=== PATIENT | female | born 1940 | race Caucasian/White ===

== ENCOUNTER 2018-12-24 05:31 | Inpatient (IN) | payer MEDICARE, OTHER | END 2018-12-27 17:09 | disposition home or self-care (01) | LOC: PAS IN 05:31 → ORTHO 4S 10:40 | PROC: 0SRD0J9 Replacement of Left Knee Joint with Synthetic Substitute, Cemented, Open Approach (ICD-10-PCS; principal; 2018-12-24 07:06) | DX: M17.12 Unilateral primary osteoarthritis, left knee (principal); D62 Acute posthemorrhagic anemia; I48.91 Unspecified atrial fibrillation; Z79.01 Long term (current) use of anticoagulants ==

== ENCOUNTER 2019-08-16 14:58 | Day surgery (SDC) | payer MEDICARE, OTHER ==
[~2019-08-16] VITALS: Ht 172.7 cm; Wt 121.3 kg
[2019-08-16] VITALS (8 sets, daily range): BP systolic 128–170; BP diastolic 57–88
[~2019-08-16 14:58] MED LIST: APIX5TAB3 PO; ATOR40TA PO; DILT180C66 PO; LOSA50TA64 PO; METF-438 PO; MULT-1180 PO; OCUVITE PO; PIOG15TA8 PO; SITA50TA PO
[2019-08-16] MEDS ORDERED: normal saline 1000ml 1,000 ML IV SCH (15:25)
[2019-08-16] MEDS ORDERED: fentaNYL/PF 50MCG/1 ML 2ML syringe IV ONE (15:25)
[2019-08-16] MEDS ORDERED: MIDAZolam 5mg/ml 2ml vial IV ONE (15:25)
[2019-08-16] MEDS ORDERED: DILT300C53 PO (15:36)
[2019-08-16] MEDS ORDERED: SITA100T15 PO (15:36)
[2019-08-16] MEDS ORDERED: APIX5TAB3 PO (15:36)
== END 2019-08-16 18:55 | disposition home or self-care (01) ==
LOC: SSTAY O 14:58
PROVIDERS: ATTEND Internal Medicine Interventional Cardiology
DX: I48.0 Paroxysmal atrial fibrillation (principal); I48.3 Typical atrial flutter; E11.9 Type 2 diabetes mellitus without complications; I10 Essential (primary) hypertension; E78.5 Hyperlipidemia, unspecified; Z79.84 Long term (current) use of oral hypoglycemic drugs; Z79.899 Other long term (current) drug therapy; Z79.01 Long term (current) use of anticoagulants
CPT/HCPCS: 82948; 92960; 93005; J2250; J3010; J7030

== ENCOUNTER 2024-10-25 13:17 | Outpatient (CLI) | payer MEDICARE, OTHER ==
[~2024-10-25 13:17] MED LIST changes: +ATOR20TA66 PO; -ATOR40TA PO; +BETA1TAB19 PO; -DILT180C66 PO; +IBAN150T21 PO; +LACT1CAP26 PO; -LOSA50TA64 PO; +METO25TA6 PO; -MULT-1180 PO; -OCUVITE PO; +OLME20TA69 PO; -PIOG15TA8 PO; +PIOG30TA71 PO; -SITA50TA PO
[2024-12-22] MEDS ORDERED: boniva PO (16:25)
== END 2024-10-25 23:59 | disposition home or self-care (01) ==
LOC: RAD 13:17
PROVIDERS: ATTEND Student in an Organized Health Care Education/Training Program
DX: J18.9 Pneumonia, unspecified organism (principal)
CPT/HCPCS: 71046

== ENCOUNTER 2025-01-06 11:11 | Outpatient (CLI) | payer MEDICARE, OTHER ==
[~2025-01-06 11:11] MED LIST changes: -BETA1TAB19 PO; +CEFD300C3 PO; +FURO20TA4 PO; -LACT1CAP26 PO; +POTA-207 PO; +SACC250C PO; +boniva PO
== END 2025-01-06 23:59 | disposition home or self-care (01) ==
LOC: RAD 11:11
PROVIDERS: ATTEND Student in an Organized Health Care Education/Training Program
DX: J18.9 Pneumonia, unspecified organism (principal); J90 Pleural effusion, not elsewhere classified
CPT/HCPCS: 71045

== ENCOUNTER 2025-03-22 10:13 | Outpatient (CLI) | payer MEDICARE, OTHER ==
[~2025-03-22 10:13] MED LIST changes: -CEFD300C3 PO; -FURO20TA4 PO; -METF-438 PO; +METO-395 PO; -METO25TA6 PO; -OLME20TA69 PO; -PIOG30TA71 PO; -POTA-207 PO; -SACC250C PO; -boniva PO
--- NOTE | 2025-03-22 11:05 | RADIOLOGY REPORT ---
DI CHEST,TWO VIEWS, HISTORY: RECURRENT RIGHT PLEURAL EFFUSION COMPARISON: DI CHEST,TWO VIEWS on DOS: 10/25/24, DI CHEST,TWO VIEWS on DOS: 10/01/24 DI CHEST,TWO VIEWS on DOS: 10/25/24, DI CHEST,TWO VIEWS on DOS: 10/01/24 TECHNICAL DATA: 2 view of the chest was obtained. FINDINGS: Lines and tubes: A right sided chest tube is seen. Cardiomediastinal silhouette: normal Pulmonary vasculature: normal Lung expansion: normal Lung airspace: Patchy right basilar airspace opacities. Lung interstitium: normal Pleura: Increase in right pleural effusion. Pneumothorax: no Bones: Unremarkable Other: no IMPRESSION: Increase in right pleural effusion. Patchy right basilar airspace opacities. No pneumothorax is seen.
== END 2025-03-22 23:59 | disposition home or self-care (01) ==
LOC: RAD 10:13
PROVIDERS: ATTEND Thoracic Surgery (Cardiothoracic Vascular Surgery)
DX: J90 Pleural effusion, not elsewhere classified (principal); J98.4 Other disorders of lung
CPT/HCPCS: 71046

== ENCOUNTER → 2025-04-01 | Outpatient (CLI) | payer MEDICARE, OTHER ==
[~2025-04-01] MED LIST changes: +EMPA10TA PO; +FURO40TA4 PO; +METO25TA6 PO; +POTA-207 PO
--- NOTE | 2025-04-01 10:50 | RADIOLOGY REPORT ---
EXAM: DI CHEST,TWO VIEWS CLINICAL HISTORY: RECURRENT RIGHT PLEURAL EFFUSION COMPARISON: DI CHEST,TWO VIEWS on DOS: 03/22/25, DI CHEST,TWO VIEWS on DOS: 10/25/24, DI CHEST,TWO VIEW S on DOS: 10/01/24 TECHNIQUE: Frontal and lateral view of the chest was obtained FINDINGS: Lines and Tubes: Right chest tube is visualized. Lungs: Small right pleural effusion. Pleura: No effusion. No pneumothorax. Cardiomediastinal contours: Unremarkable Bones: No acute osseous abnormality. IMPRESSION: Right chest tube is visualized with small right pleural effusion.
== END | disposition home or self-care (01) ==
LOC: RAD 09:50
PROVIDERS: ATTEND Thoracic Surgery (Cardiothoracic Vascular Surgery)
DX: J90 Pleural effusion, not elsewhere classified (principal)
CPT/HCPCS: 71046

== ENCOUNTER 2025-04-08 08:14 | Day surgery (SDC) | payer MEDICARE, OTHER ==
[2025-04-07 13:13] LABS: BASOPHILS # (AUTO) 0.1 X10'3 (0-0.2); EOSINOPHILS # (AUTO) 0.2 X10'3 (0-0.9); EOSINOPHILS % (AUTO) 1.8 % (0-6); LYMPHOCYTES # (AUTO) 1.7 X10'3 (1.1-4.8); LYMPHOCYTES % (AUTO) 17.5 % (21-51); MEAN CORPUSCULAR HEMOGLOBIN 30.2 PG (27.0-31.0); MEAN CORPUSCULAR HGB CONC 32.8 g/dL (33.0-36.5); MEAN CORPUSCULAR VOLUME 92.2 FL (78-98); MEAN PLATELET VOLUME 7.7 FL (7.4-10.4); MONOCYTES # (AUTO) 1.1 X10'3 (0-0.9); MONOCYTES % (AUTO) 10.8 % (2-12); NEUTROPHILS # (AUTO) 6.7 X10'3 (1.8-7.7); NEUTROPHILS % (AUTO) 68.9 % (42-75); PRE OP HEMATOCRIT 42.5 % (35.0-45.0); PRE OP HEMOGLOBIN 13.9 g/dL (12.0-16.0); PRE OP PLATELET COUNT 475 X10'3 (140-440); PRE OP WHITE BLOOD COUNT 9.8 10'3 (4.8-10.8); RED BLOOD COUNT 4.61 X10'6 (4.20-5.60); RED CELL DISTRIBUTION WIDTH 14.4 % (11.5-14.5)
[2025-04-07 13:25] LABS: ALBUMIN 2.8 G/DL (3.4-5.0); ALBUMIN/GLOBULIN RATIO 0.7 (1.1-1.5); ALKALINE PHOSPHATASE 169 IU/L (46-116); BLOOD UREA NITROGEN 12 MG/DL (7-18); BUN/CREATININE RATIO 12.8 (10.0-20.0); CALCIUM 9.2 MG/DL (8.5-10.1); CHLORIDE 102 MMOL/L (99-107); CREATININE 0.94 MG/DL (0.40-0.90); PRE OP ALT 35 U/L (30-65); PRE OP ANION GAP 7 (8-16); PRE OP AST 49 U/L (10-37); PRE OP BILIRUB, TOTAL 0.7 MG/DL (0.0-1.0); PRE OP GLUCOSE 107 MG/DL (70-104); PRE OP POTASSIUM 4.1 MMOL/L (3.4-5.1); PRE OP SODIUM 142 MMOL/L (135-145); TOTAL CARBON DIOXIDE 32.6 MMOL/L (24-32); TOTAL PROTEIN 6.8 G/DL (6.4-8.2); eGFR 57 ML/MIN
[2025-04-07] MEDS: ceFAZolin 2gm/dext,iso 50mL 50 ML IV ONE (14:36)
[2025-04-07] MEDS: DOCUMENT DATE & TIME OF BETA-BLOCKER PO ONE (15:03)
[~2025-04-08] VITALS: Ht 175.3 cm; Wt 103.6 kg
[2025-04-08] VITALS (10 sets, daily range): BP systolic 97–129; BP diastolic 60–93; PULSE 68–117; RESP 14–23; TEMP 98.2; O2SAT 96–100
[~2025-04-08 08:14] MED LIST changes: -IBAN150T21 PO; -METO25TA6 PO
[2025-04-08] MEDS: famotidine 20mg tablet PO ONE (09:19)
[2025-04-08] MEDS: ringers solution, lacted 1,000 ML IV SCH (09:20)
[2025-04-08] MEDS ORDERED: BUPIVAcaine 2.5mg/ml inj 50ml vial (contains preservative) ONE (12:13)
[2025-04-08] MEDS ORDERED: LIDOcaine 1% (10mg/ml)w/preservative inj. 20ml MDV ONE (12:13)
[2025-04-08] MEDS ORDERED: propofol 10mg/ml 20ml vial IV ONE (12:15)
--- NOTE | 2025-04-08 12:16 | RADIOLOGY REPORT ---
EXAM: DI CHEST,SINGLE VIEW HISTORY: PREOP COMPARISON: DI CHEST,SINGLE VIEW on DOS: 02/09/25, DI CHEST,SINGLE VIEW on DOS: 02/08/25, DI CHEST,SING LE VIEW on DOS: 02/07/25, DI CHEST,SINGLE VIEW on DOS: 02/06/25, DI CHEST,SINGLE VIEW on DOS: 02/05/25, chest CT dated 02/05/2025 TECHNIQUE: Portable upright AP view of the chest was performed. FINDINGS: Loculated right pleural effusion and right lung base atelectasis are re-identified. Right chest thora costomy tube is re-identified with its tip in the right upper chest apex. No pneumothorax. The left l ant is clear. The heart is borderline enlarge the aortic arch is calcific. The central pulmonary art eries are ectatic, better characterized on prior CT scan. There are postoperative changes of left pr oximal humeral fixation, not fully imaged here. IMPRESSION: 1. Stable loculated right pleural effusion and right lung base atelectasis, with right thoracostomy t ube in place. 2. The left lung is clear. 3. Atherosclerotic vascular disease and pulmonary arterial hypertension.
[2025-04-08] MEDS ORDERED: ringers solution, lacted 1,000 ML IV SCH (12:25)
[2025-04-08] MEDS ORDERED: ondansetron/PF 4mg/2ml inj IV PRN (12:25)
[2025-04-08] MEDS ORDERED: labetalol 20mg/4ml (5mg/ml) syringe IV PRN (12:25)
[2025-04-08] MEDS ORDERED: enalaprilat 1.25mg/ml 2ml vial IV PRN (12:25)
[2025-04-08] MEDS ORDERED: proCHLORperazine 10 MG/2 ml inj IV PRN (12:25)
[2025-04-08] MEDS ORDERED: morphine 4 MG/ML inj SYRINge IV PRN (12:25)
[2025-04-08] MEDS ORDERED: morphine 2 MG/ML inj. syringe IV PRN (12:25)
[2025-04-08] MEDS ORDERED: meperidine/PF 25mg/ml syringe IV PRN ×3 (12:25)
[2025-04-08] MEDS ORDERED: midazolam 1 mg/ML 2ml injection ONE (12:29)
[2025-04-08] MEDS ORDERED: mupirocin 2% ointment 22GM ONE (12:42)
--- NOTE | 2025-04-25 12:10 | OPERATIVE REPORT ---
DATE OF SURGERY: 04/08/2025 DICTATING PHYSICIAN: Mikie Robison MD PREOPERATIVE DIAGNOSIS: Nonfunctioning right PleurX catheter. POSTOPERATIVE DIAGNOSIS: Nonfunctioning right PleurX catheter. PROCEDURE: Removal of PleurX catheter. SURGEON: Mikie Robison MD ANESTHESIA: Local with 1% lidocaine, approximately 5 mL with monitored anesthesia coverage. COMPLICATIONS: None. ESTIMATED BLOOD LOSS: Less than 2 mL. DESCRIPTION OF PROCEDURE: The patient was taken to the operating room and placed in the supine position. Following the administration of intravenous sedation, the right anterior chest and upper abdomen were prepped and draped sterilely. The skin and subcutaneous tissue surrounding the insertion site of the PleurX catheter was infiltrated with 1% lidocaine. The suture securing the catheter to the skin was then divided. Using a mosquito clamp, the insertion site was dilated. Gentle downward traction to identify the location of the cuff was then accomplished. This area was then freed with blunt dissection. With gentle and firm downward traction, the catheter was easily removed from the chest. The site was then treated with Neosporin ointment and a bio-occlusive dressing placed. The patient was awakened and returned to the recovery room in stable condition, having tolerated the procedure satisfactorily. There were no complications. Sponge, needle and instrument counts were correct x 2 at the end of the case. Mikie Robison MD TID: [id number] RECEIPT: [id number] ALLEY/EDEL
== END 2025-04-08 14:28 | disposition home or self-care (01) ==
LOC: PAS 08:14
PROVIDERS: ATTEND Thoracic Surgery (Cardiothoracic Vascular Surgery)
DX: Z46.82 Encounter for fitting and adjustment of non-vascular catheter (principal); J90 Pleural effusion, not elsewhere classified; I48.91 Unspecified atrial fibrillation; I10 Essential (primary) hypertension; E78.5 Hyperlipidemia, unspecified; E11.9 Type 2 diabetes mellitus without complications; Z98.890 Other specified postprocedural states; Z79.899 Other long term (current) drug therapy; Z90.710 Acquired absence of both cervix and uterus; Z96.653 Presence of artificial knee joint, bilateral
CPT/HCPCS: 32552; 36415; 71045; 80053; 82948; 85025; A4215; A6258; J2250; J2704; J3490; J7120; Z7506; Z7512; Z7610

== ENCOUNTER 2025-04-09 10:41 | Emergency (ER) | payer MEDICARE, OTHER ==
[~2025-04-09] VITALS: Ht 175.3 cm; Wt 151.0 kg
[2025-04-09 11:02] VITALS: TEMP 98.2
--- NOTE | 2025-04-09 11:39 | Physician Documentation ---
History of Present Illness ~ Chief Complaint: Wound Re-Check Stated Complaint: LUNG BANDAGE Time Seen by MD: 11:02 Primary Medical Doctor: Linda Barrientos HPI 85-year-old female presenting for wound check. She had her PleurX catheter for recurrent pleural effusion pulled 2 days ago. The dressing was dislodged and she was told by her home health nurse to get rechecked in the emergency department. She has no fever no shortness of breath no symptoms she is feeling fine no noted drainage from the incision site Reviewed discharge summary January 2025 recurrent right pleural effusion status post tunneled PleurX catheter February 07, 2025 Medication Reconciliation Allergies: Coded Allergies: melatonin (Verified Adverse Reaction, Intermediate, confusion, 04/07/25) confusion and Hallucination Scheduled Apixaban (Eliquis), 1 TAB PO BID, (Reported) Atorvastatin Calcium (Atorvastatin Calcium), 1 TAB PO DAILY, (Reported) Empagliflozin (Jardiance), 1 TAB PO DAILY, (Reported) Furosemide (Furosemide), 1 TAB PO BID, (Reported) Metoprolol Succinate (Metoprolol Succinate), 1 TAB PO DAILY, (Reported) Potassium Chloride* (K-Dur*), 1 TAB PO DAILY, (Reported) Discontinued Medications Ibandronate Sodium (Ibandronate Sodium), 1 TAB PO Q30D, (Reported) Discontinued Reason: Pt. Refused Metoprolol Succinate (Metoprolol Succinate), 25 MG PO DAILY Discontinued Reason: Other Metoprolol Tartrate (Metoprolol Tartrate), 1 TAB PO BID, (Reported) Discontinued Reason: Prescription changed Past Medical History Past Medical History: Atrial Fibrillation, Pneumonia, *GI/HEPATOBILIARY* Past Surgical History: noncontributory Alcohol Use: None Drug Use: none Lives with: Spouse Lives In: Home Occupation: retired Review of Systems All Other Systems at this time: Reviewed and Negative Physical Exam Vital Signs: Temperature: 98.2, Source: Oral, Heart Rate: 74, Respiratory Rate: 18, BP: 150/89, Pulse Oximetry: 97, Weight: 151.000 Oxygen Flow Rate: 0 Physical Exam Well-appearing no distress Pulmonary clear to auscultation bilaterally Right posterior chest tube incision intact, appropriately healing, no drainage no purulent discharge no surrounding erythema Progress Results/Orders Results/Orders Vital Signs 04/09/25 11:02 Temp 98.2 Pulse 74 Resp 18 B/P (MAP) 150/89 Pulse Ox 97 O2 Flow Rate 0 Medical Decision Making Additional info obtained from: old records Additional Comment Abscess, cellulitis, pneumothorax Departure Disposition: 01 HOME / SELF CARE / HOMELESS Impression: Primary Impression: Healing of postoperative wound Additional Impression Text Patient presenting for dislodged wound dressing following PleurX catheter removal 2 days ago. She is asymptomatic. Wound is healing nicely. She has no shortness of breath her vitals are unremarkable. Dressing reapplied to the affected area. She has home health for follow up Additional Instructions: Your wound is healing nicely and does not appear to be infected. Your vitals are all unremarkable and I hear no concerning findings on your pulmonary exam. Keep the dressing in place if it gets saturated you may replace it. If there is any pus coming from the area or if you develop fever return to the emergency department Referrals: NO PRIMARY CARE PROVIDER (PCP) Signature Scribe Signature: diann Attestation: GERRY Alexander MD April 09, 2025 11:39
[2025-04-09 11:59] VITALS: BP 150/89; PULSE 74; RESP 17; O2SAT 97
== END 2025-04-09 12:01 | disposition home or self-care (01) ==
LOC: ER 10:42
DX: T81.89XA Other complications of procedures, not elsewhere classified, initial encounter (principal); I48.91 Unspecified atrial fibrillation; Y83.8 Other surgical procedures as the cause of abnormal reaction of the patient, or of later complication, without mention of misadventure at the time of the procedure; Y92.89 Other specified places as the place of occurrence of the external cause
CPT/HCPCS: 99284; A6212